=== PATIENT | female | born 1970 | race Caucasian/White ===

== ENCOUNTER 2017-09-18 21:21 | Emergency (ER) | payer BC ==
[~2017-09-18] VITALS: Ht 149.9 cm; Wt 69.0 kg
[2017-09-18] MEDS ORDERED: AMOX125S8 PO (22:22)
[2017-09-18] MEDS ORDERED: LORA10TA7 PO (22:22)
[2017-09-19] MEDS ORDERED: IBUPROFEN 400MG TABLET PO ONE (01:15)
[2017-09-19 01:25] VITALS: BP 137/69
== END 2017-09-19 01:27 | disposition home or self-care (01) ==
LOC: ER 21:55
DX: J32.9 Chronic sinusitis, unspecified (principal); J45.909 Unspecified asthma, uncomplicated
CPT/HCPCS: 70450; 81025; 99284